=== PATIENT | male | born 1975 | race Caucasian/White ===

== ENCOUNTER 2016-12-09 17:22 | Observation (INO) | payer BC, MEDICAID ==
[~2016-12-09 17:22] MED LIST: THIAMINE 100 MG TAB PO SCH
[2016-12-09] MEDS ORDERED: ONDANSETRON 4 MG/2 ML VIAL IVP STA ×2 (17:52→18:18)
[2016-12-09] MEDS ORDERED: MORPHINE SULFATE 4 MG/ML SYRINGE IV STA (18:18)
--- NOTE | 2016-12-09 18:37 | XR ---
EXAMINATION TYPE: XR chest 2V DATE OF EXAM: 12/09/2016 COMPARISON: 01/09/2016 HISTORY: Chest pain TECHNIQUE: Frontal and lateral views of the chest are obtained. FINDINGS: Heart and mediastinum are normal. Lungs are clear. Diaphragm is normal. There are chest le ads. Bony thorax is intact. IMPRESSION: Normal chest. No change.
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
[2016-12-09 18:51] LABS: Aty Lym Flag Slight; CH 33.4; CHCM 34.9; HCT 42.7 % (39.0-53.0); HDW 2.48; HGB 16.3 gm/dL (13.0-17.5); MCH 36.7 pg (25.0-35.0); MCV 96.3 fL (80.0-100.0); Mean Platelet Volume 6.3; RBC 4.43 m/uL (4.30-5.90); RDW 13.2 % (11.5-15.5); WBC 8.1 k/uL (3.8-10.6); WBC (Perox) 7.65
[2016-12-09 19:00] LABS: MCHC 38.1 g/dL (31.0-37.0)
[2016-12-09 19:09] LABS: Creatine Kinase 106 U/L (55-170)
[2016-12-09 19:20] LABS: Chloride 104 mmol/L (98-107); Potassium 3.9 mmol/L (3.5-5.1); Sodium 136 mmol/L (137-145)
[2016-12-09 19:21] LABS: Creatine Kinase MB 1.8 ng/mL (0.0-2.4); Troponin I <0.012 ng/mL (0.000-0.034)
[2016-12-09 19:22] LABS: Add Differential Manual Differential
[2016-12-09 19:26] LABS: Manual Review Performed; Nucleated Red Blood Cells 0 /100 WBC (0-0); Total Cells Counted 100
[2016-12-09 19:28] LABS: ALT 86 U/L (21-72); AST 157 U/L (17-59); Alkaline Phosphatase 103 U/L (38-126); Amylase 71 U/L (30-110); Anion Gap 13 mmol/L; Blood Urea Nitrogen 22 mg/dL (9-20); Calcium 8.8 mg/dL (8.4-10.2); Carbon Dioxide 19 mmol/L (22-30); Glucose 140 mg/dL (74-99); Magnesium 2.1 mg/dL (1.6-2.3); Non-African American GFR(MDRD) >60 (>60 ml/min/1.73 sqM); Total Bilirubin 0.6 mg/dL (0.2-1.3); Total Protein 6.9 g/dL (6.3-8.2)
[2016-12-09] MEDS ORDERED: SODIUM CHLORIDE 0.9% 1,000 ML IV ONE (19:54)
[2016-12-09 21:17] LABS: Partial Thromboplastin Time 25.8 sec (22.0-30.0)
[2016-12-09 21:31] LABS: Prothrombin Time 12.4 sec (9.0-12.0)
[2016-12-09] MEDS ORDERED: NITROGLYCERIN SL TABS 0.4 MG TAB SUBLINGUAL PRN (21:42)
[2016-12-09] MEDS ORDERED: THIAMINE 100 MG/ML 2 ML VIAL IM STA (21:44)
[2016-12-09] MEDS ORDERED: LORazepam 2 MG/ML SYRINGE IV PRN ×3 (21:44)
[2016-12-09] MEDS ORDERED: traMADol 50 MG TAB PO PRN (22:03)
[2016-12-09] MEDS ORDERED: ALBUTEROL NEBULIZED 2.5 MG/3 ML INHALATION PRN (22:03)
[2016-12-09 22:57] VITALS: BMI 27.4
[2016-12-09] MEDS ORDERED: TRIMETHOBENZAMIDE 100 MG/ML 2 ML VIAL IM PRN (23:13)
[2016-12-09] MEDS ORDERED: MORPHINE SULFATE 2 MG/ML SYRINGE IVP PRN (23:14)
[2016-12-09] MEDS: MORPHINE SULFATE 2 MG/ML SYRINGE IVP PRN (23:36)
[2016-12-10 00:39] LABS: Creatine Kinase 86 U/L (55-170)
[2016-12-10 00:52] LABS: Creatine Kinase MB 1.5 ng/mL (0.0-2.4); Troponin I <0.012 ng/mL (0.000-0.034)
[2016-12-10] MEDS: MORPHINE SULFATE 2 MG/ML SYRINGE IVP PRN ×5 (04:10→23:57)
[2016-12-10] MEDS: PANTOPRAZOLE 40 MG TABLET PO SCH (05:29)
[2016-12-10 07:05] LABS: Creatine Kinase 472 U/L (55-170)
[2016-12-10 07:14] LABS: Creatine Kinase MB 2.3 ng/mL (0.0-2.4); Troponin I <0.012 ng/mL (0.000-0.034)
--- NOTE | 2016-12-10 07:32 | HP ---
DATE OF ADMISSION: 12/09/2016 CHIEF COMPLAINT: A 41-year-old white male with substernal chest pain, constant severe aching in nature. Cannot remember what he was doing when it started. He was drinking heavily. His alcohol was over 200 when he came in. He had some nausea and vomiting. He states he has had this pain similar to when he had his five stents put in before. EKG in the ER was normal. Cardiology was consulted. He is having no diaphoresis, dyspnea, lightheadedness, palpitations, syncope. He has had pancreatitis before, he does not remember if this is similar to any pancreatitis he has ever had. It is aching, constant, worsens with ( ). Home Medications: 1. Albuterol inhaler. 2. Advair inhaler. 3. Protonix. ALLERGIES: No known drug allergies. REVIEW OF SYSTEMS: Fourteen-point review of systems negative except for as mentioned in HPI. EKG shows sinus rhythm. No ischemia. PAST MEDICAL HISTORY: Asthma, detached retina, heart catheterization with stents x5 over a year ago. Uses marijuana. No smoker, but he does have alcohol abuse. FAMILY HISTORY: Mother COPD, hypertension. PHYSICAL EXAM: He is alert and oriented x3. He feels weak and fatigued. He looks disheveled and respiratory shows clear. No rales, rhonchi or stridor. CARDIOVASCULAR: S1, S2 without any murmurs, rubs, gallops. GI: Distended due to obesity. Normal bowel sounds. No mass or organomegaly. HEMATOLOGIC: Negative Homans. VASCULAR: Normal dorsalis pedis, posterior tibial and radial pulse. NEUROLOGIC: Alert and oriented x3. VASCULAR: Normal dorsalis pedis, posterior tibial and radial pulse. Temperature 98.6, blood pressure is 115 to 126/50's to 60s. O2 96 to 98%, pulse is 75 to 92. ASSESSMENT: 1. Acute alcohol intoxication. 2. Atypical chest pain, rule out myocardial infarction. 3. Severe, dyslipidemia untreatable with home medications and IV medicines. 4. Mild pancreatitis with some emesis. Cardiology has been consulted. Cardiac enzymes will be redrawn. Elevated liver enzymes. Ultrasound of the liver will be done. [facility] protocol.
--- NOTE | 2016-12-10 07:36 | US ---
EXAMINATION TYPE: US abdomen complete DATE OF EXAM: 12/10/2016 COMPARISON: NONE CLINICAL HISTORY: liver enzyme elevation. EXAM MEASUREMENTS: Liver Length: 16.9 cm Gallbladder Wall: 0.2 cm CBD: 0.3 cm Spleen: 10.0 cm Right Kidney: 11.0 x 5.0 x 4.8 cm Left Kidney: 10.9 x 5.6 x 5.2 cm Pancreas: mostly obscured by bowel gas Liver: Increased attenuation, decreased visualization of vessels suggestive of fatty infiltrate, upp er limit in size Gallbladder: wnl Evidence for sonographic Davis's sign: no CBD: wnl Spleen: wnl Right Kidney: wnl Left Kidney: wnl Upper IVC: wnl Abd Aorta: somewhat limited visualization due to bowel gas, distal and bifurcation not seen, prox me asures 3.1cm The pancreas is poorly visualized. The liver is upper limits of normal in size and echogenic and may be fatty infiltrated. The gallbladder is unremarkable without evidence of cholelithiasis. Gallbladder wall measures 2 mm. T he distal common hepatic duct measures 3 mm. There is no sonographic Davis's sign. The spleen is normal in size. Both kidneys are normal. Visualized portions of aorta and IVC are normal. IMPRESSION: Probable fatty infiltration of the liver.
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
[2016-12-10] MEDS ORDERED: ASPIRIN 325 MG TAB PO SCH (09:00)
[2016-12-10] MEDS ORDERED: THIAMINE 100 MG TAB PO SCH (09:00)
[2016-12-10] MEDS ORDERED: NON-FORMULARY DRUG (Omega-3 Fatty Acids [Omega-3] 1,000 MG) PO SCH (09:00)
[2016-12-10] MEDS: TICAGRELOR 90 MG TAB PO SCH ×2 (09:08→20:13)
[2016-12-10] MEDS: FENOFIBRATE 160 MG TAB PO SCH (09:08)
[2016-12-10] MEDS: SYMBICORT 80-4.5 MCG INHALER INHALATION SCH ×2 (09:24→19:00)
[2016-12-10] MEDS: LISINOPRIL 5 MG TAB PO SCH (11:34)
[2016-12-10] MEDS: ASPIRIN 81 MG CHEW PO SCH (11:34)
[2016-12-10] MEDS: METOPROLOL TARTRATE 25 MG TAB PO SCH ×2 (11:34→20:13)
[2016-12-10] MEDS: FOLIC ACID-VIT B COMPLEX-VIT C 1 CAP PO SCH (11:34)
[2016-12-10] MEDS: THIAMINE 100 MG TAB PO SCH ×3 (11:35→16:15)
[2016-12-10] MEDS ORDERED: ATORVASTATIN 40 MG TAB PO SCH (21:00)
[2016-12-11] MEDS: MORPHINE SULFATE 2 MG/ML SYRINGE IVP PRN (03:59)
[2016-12-11 04:27] VITALS: TEMP 97
[2016-12-11 08:15] VITALS: BP 127/74; PULSE 85; RESP 16
[2016-12-11] MEDS: SYMBICORT 80-4.5 MCG INHALER INHALATION SCH (08:39)
[2016-12-11] MEDS: FENOFIBRATE 160 MG TAB PO SCH (08:40)
[2016-12-11] MEDS: TICAGRELOR 90 MG TAB PO SCH (08:40)
[2016-12-11] MEDS: LISINOPRIL 5 MG TAB PO SCH (08:40)
[2016-12-11] MEDS: METOPROLOL TARTRATE 25 MG TAB PO SCH (08:40)
[2016-12-11] MEDS: PANTOPRAZOLE 40 MG TABLET PO SCH (08:40)
[2016-12-11] MEDS: ASPIRIN 81 MG CHEW PO SCH (08:40)
[2016-12-11] MEDS: FOLIC ACID-VIT B COMPLEX-VIT C 1 CAP PO SCH (08:41)
[2016-12-11] MEDS: THIAMINE 100 MG TAB PO SCH (08:41)
[2016-12-11] MEDS ORDERED: MORPHINE SULFATE 2 MG/ML SYRINGE ONE (09:00)
[2016-12-11] MEDS ORDERED: FENOFIBRATE 160 MG TAB ONE (09:00)
[2016-12-11] MEDS ORDERED: TICAGRELOR 90 MG TAB ONE (09:00)
[2016-12-11] MEDS ORDERED: ASPIRIN 81 MG CHEW ONE (09:00)
[2016-12-11] MEDS ORDERED: METOPROLOL TARTRATE 25 MG TAB ONE (09:00)
[2016-12-11] MEDS ORDERED: PANTOPRAZOLE 40 MG TABLET PO ONE (09:00)
[2016-12-11] MEDS ORDERED: LISINOPRIL 5 MG TAB ONE (09:00)
[2016-12-11] MEDS ORDERED: THIAMINE 100 MG TAB ONE (09:00)
[2016-12-11] MEDS ORDERED: FOLIC ACID-VIT B COMPLEX-VIT C 1 CAP ONE (09:00)
--- NOTE | 2016-12-11 10:39 | PN ---
SUBJECTIVE: Patient has no more emesis since last night, possibly due to alcoholism versus gastritis. His abdominal ultrasound is specific for a fatty liver. Cardiology saw the patient this morning. Cardiology says atypical for acute coronary syndrome. Troponins are negative x3. EKG shows sinus rhythm with inferior Q waves, no acute changes. Hypertension, dyslipidemia, alcohol abuse, history of pancreatitis. Sodium 136, potassium 4.9. PLAN: Echo and Dopplers pending. Going to get [facility]. Aspirin 81 mg and continue Brilinta, Lipitor. ( ) as an outpatient. Beta yazmin was started by cardiology and DAYAMI inhibitor. ( ) protocol. He is up ambulating. Discharge home in the morning, 12/10/2016.
--- NOTE | 2016-12-11 11:53 | P.PN ---
Subjective Principal diagnosis: Chest pain and dizziness This is a 41-year-old gentleman with history of hypertension, hyperlipidemia, asthma, EtOH abuse, coronary artery disease with prior stent placements. Patient states he's had a total of 5 stents in the past also which were done at [facility]. Patient presents to the hospital with symptoms of left -sided chest pain which she describes as sharp stabbing pains that come and go, lasting approximately 1-5 seconds in duration. He denies any associated diaphoresis, shortness of breath, palpitations, he does state that he's had intermittent dizziness. Patient's alcohol level on admission was greater than 200. He states that he drinks at least a pint of whiskey a week. Patient does have history of pancreatitis. EKG on arrival here shows normal sinus rhythm with no acute changes on the inferior Q-wave noted. EKG performed this morning shows normal sinus rhythm with no acute changes. 12/11/2016 Patient seen and examined this morning, denies any chest pain or difficulty in breathing. He's been up ambulating without any difficulty. Monitor shows normal sinus rhythm. He may be able to be discharged home from cardiology's perspective, we'll make him a follow-up appointment to see Dr. VC Ruiz in the office post discharge. Objective - Vital Signs Vital signs: Vital Signs Temp 97.0 F L 12/11/16 04:00 Pulse 85 12/11/16 08:00 Resp 16 12/11/16 08:00 BP 127/74 12/11/16 08:00 Pulse Ox 95 12/11/16 08:00 Intake & Output 12/10/16 12/11/16 12/11/16 18:59 06:59 18:59 Intake Total 180 Balance 180 Weight 80.8 kg Intake: Oral 180 Other: # Voids 1 1 - Exam PHYSICAL EXAMINATION: HEENT: Head is atraumatic, normocephalic. Pupils equal, round. Neck is supple. There is no elevated jugular venous pressure. HEART EXAMINATION: Heart S1, S2 normal. No murmur or gallop heard. CHEST EXAMINATION: Lungs are clear to auscultation and precussion. No chest wall tenderness is noted on palpation or with deep breathing. ABDOMEN: Soft, nontender. Bowel sounds are heard. No organomegaly noted. EXTREMITIES: 2+ peripheral pulses with no evidence of peripheral edema and no calf tenderness noted. NEUROLOGIC patient is awake, alert and oriented -3. . - Labs CBC & Chem 7: 12/09/16 18:06 12/09/16 18:06 Assessment and Plan Plan: Assessment and plan #1 chest pain, atypical for acute coronary syndrome. Troponins negative 3. EKG shows normal sinus rhythm with inferior Q-wave, no acute changes noted. #2 coronary artery disease with prior stent placements #3 hypertension #4 hyperlipidemia #5 EtOH abuse and history of pancreatitis #6 elevated liver enzymes, likely secondary to EtOH. Plan From cardiology's perspective, patient may be able to be discharged home today. We will make him a follow-up appointment to see Dr. VC Ruiz in the office post discharge. DNP note has been reviewed, I agree with a documented findings and plan of care. Patient was seen and examined.
--- NOTE | 2016-12-12 11:45 | ECHOF ---
Referral Reason:chest pain MEASUREMENTS -------- HEIGHT: 172.7 cm WEIGHT: 80.7 kg BP: 130/30 IVSd: 1.3 cm (0.6 - 1.1) LVIDd: 4.9 cm (3.9 - 5.3) LVPWd: 0.9 cm (0.6 - 1.1) IVSs: 1.2 cm LVIDs: 4.4 cm LVPWs: 1.3 cm LA Diam: 4.1 cm (2.7 - 3.8) LAESV Index (A-L): 26.10 ml/m Ao Diam: 3.2 cm (2.0 - 3.7) AV Cusp: 2.0 cm (1.5 - 2.6) LA Diam: 4.0 cm (2.7 - 3.8) MV EXCURSION: 19.089 mm (> 18.000) MV EF SLOPE: 69 mm/s (70 - 150) EPSS: 1.0 cm MV E Lb: 0.52 m/s MV DecT: 334 ms MV A Lb: 0.86 m/s MV E/A Ratio: 0.61 RAP: 5.00 mmHg RVSP: 20.98 mmHg FINDINGS -------- Sinus rhythm. This was a technically good study. There is mild concentric left ventricular hypertrophy. Overall left ventricular systolic function is mildly impaired with, an EF between 45 - 50 %. Inferior basal Hypokinesis Basal septal hypokinesis The right ventricle is normal in size. Normal LA size by volume 22+/-6 ml/m2. The right atrial size is normal. There is mild aortic valve sclerosis. There is no evidence of aortic regurgitation. Mild mitral annular calcification present. Mild mitral regurgitation is present. Mild tricuspid regurgitation present. There is no evidence of pulmonary hypertension. The right ventricular systolic pressure, as measured by Doppler, is 20.98mmHg. There is no pulmonic regurgitation present. The aortic root size is normal. There is no pericardial effusion. CONCLUSIONS -------- 1. There is mild concentric left ventricular hypertrophy. 2. The right ventricular systolic pressure, as measured by Doppler, is 20.98mmHg. 3. There is no pulmonic regurgitation present. 4. The aortic root size is normal. 5. There is no pericardial effusion. 6. Overall left ventricular systolic function is mildly impaired with, an EF between 45 - 50 %. 7. Inferior basal Hypokinesis 8. Basal septal hypokinesis 9. There is mild aortic valve sclerosis. 10. Mild mitral annular calcification present. 11. Mild mitral regurgitation is present. 12. Mild tricuspid regurgitation present. 13. There is no evidence of pulmonary hypertension. READING INSTRUCTOR: Jazmyne Helton RDCS
== END 2016-12-11 11:52 | disposition home or self-care (01) ==
LOC: EC 17:22 → 6SEL 21:43
PROVIDERS: ADMIT Family Medicine; ATTEND Family Medicine
DX: F10.129 Alcohol abuse with intoxication, unspecified (principal); R07.9 Chest pain, unspecified; E78.5 Hyperlipidemia, unspecified; K85.90 Acute pancreatitis without necrosis or infection, unspecified; R74.8 Abnormal levels of other serum enzymes; I10 Essential (primary) hypertension; I25.10 Atherosclerotic heart disease of native coronary artery without angina pectoris; J45.909 Unspecified asthma, uncomplicated; Z79.899 Other long term (current) drug therapy; Z82.49 Family history of ischemic heart disease and other diseases of the circulatory system; Z82.5 Family history of asthma and other chronic lower respiratory diseases; Z95.5 Presence of coronary angioplasty implant and graft
CPT/HCPCS: 96376 ×4; 96374 ×2; 96375 ×2; 99285 ×2; 36415; 94640 ×3; 93005; 93306; 85379; 80053; 82150; 82550 ×2; 82553 ×2; 83735; 84484 ×2; 85025; 85610; 85730; 80320; 71020; 76700; G0378 ×3; J2270 ×4; J3411; J3250; J2405

== ENCOUNTER 2017-01-24 13:58 | Inpatient (IN) | payer MEDICAID ==
[2017-01-24] MEDS ORDERED: MAGNESIUM HYDROXIDE 2,400 MG/10 ML CUP PO PRN (19:17)
[2017-01-24] MEDS ORDERED: ACETAMINOPHEN TAB 325 MG TAB PO PRN (19:17)
[2017-01-24] MEDS ORDERED: MAG HYDROX/AL HYDROX/SIMETH 30 ML CUP PO PRN (19:17)
[2017-01-24] MEDS ORDERED: ZIPRASIDONE 20 MG VIAL IM PRN (19:17)
[2017-01-24] MEDS: ALBUTEROL INHALER 60 PUFF/8 GM INHALER INHALATION PRN (21:19)
[2017-01-24] MEDS: TICAGRELOR 90 MG TAB PO SCH (21:24)
[2017-01-24] MEDS: LORazepam 1 MG TAB PO PRN (21:24)
[2017-01-24] MEDS: ATORVASTATIN 80 MG TAB PO SCH (21:24)
[2017-01-24] MEDS: LISINOPRIL 20 MG TAB PO SCH (21:24)
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
[2017-01-25] MEDS: CARVEDILOL 12.5 MG TAB PO SCH ×2 (07:44→16:51)
[2017-01-25] MEDS: PANTOPRAZOLE 40 MG TABLET PO SCH (08:01)
[2017-01-25] MEDS: ALBUTEROL INHALER 60 PUFF/8 GM INHALER INHALATION PRN ×4 (09:13→20:55)
[2017-01-25] MEDS: SYMBICORT 80-4.5 MCG INHALER INHALATION SCH ×2 (09:14→20:54)
[2017-01-25] MEDS: FENOFIBRATE 160 MG TAB PO SCH (09:53)
[2017-01-25] MEDS: LISINOPRIL 20 MG TAB PO SCH ×2 (09:53→21:05)
[2017-01-25] MEDS: ASPIRIN 81 MG CHEW PO SCH (09:53)
[2017-01-25] MEDS: TICAGRELOR 90 MG TAB PO SCH ×2 (09:53→21:05)
[2017-01-25] MEDS: ISOSORBIDE MONONITRATE ER 30 MG TAB.ER.24H PO SCH (09:53)
[2017-01-25] MEDS: POTASSIUM CHLORIDE ER 10 MEQ TAB.ER.PRT PO SCH (09:53)
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
[2017-01-25] MEDS: SERTRALINE 100 MG TAB PO SCH (11:04)
[2017-01-25] MEDS: THIAMINE 100 MG TAB PO SCH (12:10)
[2017-01-25] MEDS: FOLIC ACID-VIT B COMPLEX-VIT C 1 CAP PO SCH (12:10)
[2017-01-25] MEDS: ATORVASTATIN 80 MG TAB PO SCH (21:05)
[2017-01-25] MEDS: LORazepam 1 MG TAB PO PRN (21:27)
[2017-01-26] MEDS: SERTRALINE 100 MG TAB PO SCH (09:01)
[2017-01-26] MEDS: POTASSIUM CHLORIDE ER 10 MEQ TAB.ER.PRT PO SCH (09:01)
[2017-01-26] MEDS: TICAGRELOR 90 MG TAB PO SCH ×2 (09:01→20:20)
[2017-01-26] MEDS: PANTOPRAZOLE 40 MG TABLET PO SCH (09:01)
[2017-01-26] MEDS: CARVEDILOL 12.5 MG TAB PO SCH ×2 (09:02→17:05)
[2017-01-26] MEDS: ISOSORBIDE MONONITRATE ER 30 MG TAB.ER.24H PO SCH (09:02)
[2017-01-26] MEDS: LISINOPRIL 20 MG TAB PO SCH ×2 (09:02→20:20)
[2017-01-26] MEDS: ASPIRIN 81 MG CHEW PO SCH (09:02)
[2017-01-26] MEDS: FENOFIBRATE 160 MG TAB PO SCH (09:02)
[2017-01-26] MEDS: SYMBICORT 80-4.5 MCG INHALER INHALATION SCH ×2 (09:22→21:16)
[2017-01-26] MEDS: ALBUTEROL INHALER 60 PUFF/8 GM INHALER INHALATION PRN ×2 (09:24→21:18)
[2017-01-26] MEDS: FOLIC ACID-VIT B COMPLEX-VIT C 1 CAP PO SCH (11:56)
[2017-01-26] MEDS: THIAMINE 100 MG TAB PO SCH (11:56)
--- NOTE | 2017-01-26 12:28 | P.PN ---
Progress Note - Text Interval History: Patient is a 41-year-old male who is being seen in coverage for Dr. Suh. Patient reports that he had been transferred here from [facility] where he had been detoxing from alcohol and made suicidal statements. Patient states he is no longer having any suicidal thoughts and states that he is no longer feeling depressed. He reports that he has been sleeping and eating well. Patient states that he is interested in inpatient rehab and has contacted [facility] for this. Patient reported no complaints of side effects from his Zoloft and had no other concerns at this time. Mental Status: Appearance/Attitude: Patient was appropriately dressed and he made good eye contact and was cooperative. Behavior: Patient did not display any psychomotor agitation or retardation. Speech/Language: Patient's speech was spontaneous and of normal volume and rhythm and he was coherent. Thought Process: Patient was goal-directed and there is no evidence of any circumstantial or tangential thought and no loose associations or flight of ideas. Thought Content: Patient denied any auditory or visual hallucinations and no paranoid ideation or delusional ideation was elicited. Patient reported that he was no longer feeling depressed or suicidal and had been sleeping and eating well. He reported that he would like to go to rehab so that he does not return to using alcohol and cocaine. Suicidal/Homicidal Ideation: Patient denied any current suicidal or homicidal ideation. Sensorium/Cognition: Patient was alert and oriented to person, place, and time and his memory was grossly intact. Mood/Affect: Patient's mood was euthymic and his affect was appropriate. Insight/Judgement: Patient's insight and judgment are fair. Assessment: Patient reports he is no longer having any depressive symptoms and no suicidal ideation and states that he is not having any symptoms of withdrawal. Patient has been attending groups and activities and has been participating. He is currently requesting an intake at [facility] and states he has made contact and his packet was faxed over this morning. Patient continues on his Zoloft and reports no side effects. Plan: Patient will continue on Zoloft 100 mg a day to target his depression, he was encouraged to continue to participate in groups and activities. He has contacted [facility] for an intake for inpatient rehab. Patient will continue in the hospital to further stabilize his mood.
[2017-01-26] MEDS: ATORVASTATIN 80 MG TAB PO SCH (20:20)
[2017-01-26] MEDS: LORazepam 1 MG TAB PO PRN (21:31)
[2017-01-27] MEDS: CARVEDILOL 12.5 MG TAB PO SCH (07:59)
[2017-01-27] MEDS: PANTOPRAZOLE 40 MG TABLET PO SCH (07:59)
[2017-01-27] MEDS: ISOSORBIDE MONONITRATE ER 30 MG TAB.ER.24H PO SCH (08:25)
[2017-01-27] MEDS: ASPIRIN 81 MG CHEW PO SCH (08:25)
[2017-01-27] MEDS: TICAGRELOR 90 MG TAB PO SCH ×2 (08:25→20:26)
[2017-01-27] MEDS: LISINOPRIL 20 MG TAB PO SCH (08:25)
[2017-01-27] MEDS: FENOFIBRATE 160 MG TAB PO SCH (08:26)
[2017-01-27] MEDS: POTASSIUM CHLORIDE ER 10 MEQ TAB.ER.PRT PO SCH (08:26)
[2017-01-27] MEDS: SERTRALINE 100 MG TAB PO SCH (08:26)
[2017-01-27] MEDS: SYMBICORT 80-4.5 MCG INHALER INHALATION SCH ×2 (09:27→21:49)
[2017-01-27] MEDS: ALBUTEROL INHALER 60 PUFF/8 GM INHALER INHALATION PRN ×3 (09:27→21:49)
[2017-01-27] MEDS ORDERED: LISINOPRIL 10 MG TAB PO SCH (10:50)
[2017-01-27] MEDS ORDERED: CARVEDILOL 6.25 MG TAB PO SCH (10:50)
--- NOTE | 2017-01-27 10:53 | P.PN ---
Progress Note - Text Interval history: The patient is found in the hallway he follows this to an interview room. He reports that there has been a progressive improvement of symptoms while here. He does have a family meeting scheduled for this afternoon. Nursing reports that the patient didn't have an episode of hypotension and he felt faint. There was no reported injury. Some of his blood pressure medication has been held. He's been encouraged to hydrate. The patient states his mood is improving. He feels safe in the hospital area and efforts continue to be made to place him in inpatient chemical dependency treatment. It appears [facility] is not an option due to lack of available beds and [facility] is being pursued. Nursing has contacted the consulting internal medicine physician for further recommendations. Mental status exam: The patient reports improvement of his mood. He feels safe in the hospital. He endorses no thoughts of harming others he endorses no symptoms of hallucinations. He seated calmly he is demonstrating adequate hygiene grooming. Speech is fluent spontaneous nonpressured. There is no evidence of psychosis he does not appear hypomanic or manic. He reports no symptoms of psychosis. Insight and judgment improving. He demonstrates no verbal or physical aggressiveness. There are no visible signs of alcohol withdrawal symptoms. Plan: The patient will continue on Zoloft. We will monitor his blood pressure we will await recommendations from internal medicine regarding his antihypertensives. Social work will continue assisting the patient with facilitating placement at [facility]. We will consider discharging him Monday if he is clinically stable and has demonstrated sufficient clinical improvement. Most recent vital signs reviewed.
[2017-01-27] MEDS: FOLIC ACID-VIT B COMPLEX-VIT C 1 CAP PO SCH (12:30)
[2017-01-27] MEDS: THIAMINE 100 MG TAB PO SCH (12:30)
[2017-01-27] MEDS ORDERED: SODIUM CHLORIDE 0.9% 1,000 ML IV ONE (13:44)
--- NOTE | 2017-01-27 16:59 | P.PN ---
Subjective Principal diagnosis: Patient seen and examined today per RN request due to patient having hypotension symptomatic with near syncope 41 years old male with history significant for coronary artery disease with history of coronary stenting and polysubstance abuse. Patient was recently treated for hypotension and chest pain with medical management without the need for coronary intervention after which she was discharged to our inpatient psych unit for further management of alcohol and drug abuse. Today patient reports waking up feeling a little tired however he was powering through, and this morning when he was coalled to get vital signs done he felt that he was struggling to walk the hallways to the nursing station as he felt slightly dizzy and fatigued. And while the nurse was taking his vital signs he started to become sweaty and dizzy he recognizes the symptoms and did not want to faint and pass out so he laid down on the ground without losing consciousness or sustaining any injury. He denies any associated nausea, vomiting, chest pain, or shortness of breath. Patient reports that the symptoms happened before for which his medications been adjusted. He is not sure what he supposed to take at home but he knows for sure that he is taking Lopressor, Birlinta, aspirin, And Lipitor. We contacted pharmacy to verify his medications and it seems like last time he refilled Imdur or losartan was last year. Currently patient denies again any chest pain or trouble breathing but does admit to feeling slightly dizzy without vertigo or nausea. Objective - Vital Signs Vital signs: Vital Signs Temp 98.0 F 01/27/17 06:34 Pulse 101 H 01/27/17 11:33 Resp 16 01/27/17 11:33 BP 81/53 01/27/17 11:33 Pulse Ox 98 01/27/17 10:28 Orthostatic vital signs positive for orthostatic hypotension Constitutional: Not in acute distress, pleasant, conversant Lungs: Clear to auscultation bilaterally, no use of accessory muscles Cardiovascular: Regular rate and rhythm, no murmurs, no gallops, no rubs, no peripheral edema Extremities: No digital cyanosis or clubbing, peripheral pulses palpable and equal over bilateral radial arteries and dorsalis pedis arteries, no calf muscle tenderness Psych: Alert, oriented to place, person and time EKG ordered and reviewed Assessment and Plan (1) Orthostatic hypotension Status: Acute (2) Orthostatic dizziness Status: Acute (3) Hypotension due to medication Status: Acute Plan: Patient's records reviewed Most recent echo done 12/10/2016 shows left ventricular ejection fraction of 45- 50% with concentric ventricular hypertrophy and inferior basal wall hypokinesis Most recent cardiology evaluation during that time suggested atypical chest pain and recommended to continue current cardiac medications and to follow-up outpatient with cardiology Currently patient denies any chest pain or trouble breathing. After verifying medication list with patient's pharmacy it seems that the patient has been off losartan and Imdur since 2016 and he was only receiving Lopressor, pharmacy also verify this patient receives aspirin, Lipitor, and Birlinta. It seems like this bout of hypotension secondary to being drug-induced, plan to discontinue Imdur and lisinopril. Patient is currently on Coreg this will be switched to Lopressor(which is his home medication) Hold parameters on Lopressor Continue with losartan with hold parameters Discontinue Imdur Continue with Birlinta,, aspirin, Lipitor Normal saline 0.9% 1 L bolus due to positive orthostatic vital signs Continue close monitoring of vital signs Check basic metabolic panel in the morning EKG ordered and reviewed by myself, shows normal sinus rhythm, Q wave in inferior leads(II,III,aVF) unchanged from prior EKG.
[2017-01-27] MEDS: ATORVASTATIN 80 MG TAB PO SCH (20:26)
[2017-01-27] MEDS: METOPROLOL TARTRATE 25 MG TAB PO SCH (20:26)
[2017-01-27] MEDS: LORazepam 1 MG TAB PO PRN (22:38)
[2017-01-28] MEDS: ASPIRIN 81 MG CHEW PO SCH (08:40)
[2017-01-28] MEDS: METOPROLOL TARTRATE 25 MG TAB PO SCH ×2 (08:40→20:53)
[2017-01-28] MEDS: TICAGRELOR 90 MG TAB PO SCH ×2 (08:41→20:53)
[2017-01-28] MEDS: POTASSIUM CHLORIDE ER 10 MEQ TAB.ER.PRT PO SCH (08:41)
[2017-01-28] MEDS: FENOFIBRATE 160 MG TAB PO SCH (08:42)
[2017-01-28] MEDS: SERTRALINE 100 MG TAB PO SCH (08:44)
[2017-01-28] MEDS: PANTOPRAZOLE 40 MG TABLET PO SCH (08:44)
[2017-01-28] MEDS: LOSARTAN 25 MG TAB PO SCH (08:45)
[2017-01-28] MEDS: SYMBICORT 80-4.5 MCG INHALER INHALATION SCH ×2 (08:53→20:45)
[2017-01-28] MEDS: ALBUTEROL INHALER 60 PUFF/8 GM INHALER INHALATION PRN ×3 (08:54→20:45)
[2017-01-28 09:06] LABS: Anion Gap 8 mmol/L; Blood Urea Nitrogen 15 mg/dL (9-20); Calcium 9.5 mg/dL (8.4-10.2); Carbon Dioxide 28 mmol/L (22-30); Chloride 102 mmol/L (98-107); Glucose 141 mg/dL (74-99); Non-African American GFR(MDRD) >60 (>60 ml/min/1.73 sqM); Potassium 4.2 mmol/L (3.5-5.1); Sodium 138 mmol/L (137-145)
--- NOTE | 2017-01-28 11:35 | P.PN ---
Progress Note - Text Interval history: The patient is found in the hallway he follows me to an interview room. He reports his mood is okay. He expressed some concern regarding his family meeting discussing the details of his substance use with his . He continues to be motivated for inpatient chemical dependency treatment and social work continues to look for placement. He was able to sleep last evening appetite is stable. He feels he is safe he is endorsing no acute suicidal ideation intent or plan at this time. He has been attending groups. Mental status exam: The patient is alert he is seated calmly in the chair he has a Hep-Lock on the posterior surface of his right hand. He is reporting no acute suicidal or homicidal ideation. There is no report or evidence of psychosis. He does not present hypomanic or manic. He has a mildly disheveled appearance hygiene is adequate he is dressed in his own clothing. Speech is fluent spontaneous nonpressured. Thought process is linear he demonstrates no tangential thinking loose associations or flight of ideas. He demonstrates no verbal or physical aggressiveness. He is pleasant and cooperative and easily directed in conversation. He remains oriented to person place and date. Plan: The patient will continue on the Zoloft. Input from internal medicine appreciated. Some of the patient's antihypertensive medication has been held he did receive a bolus of IV fluids. He reports no dizziness. Vital signs reviewed. I anticipate he will be appropriate for discharge Monday.
[2017-01-28] MEDS: FOLIC ACID-VIT B COMPLEX-VIT C 1 CAP PO SCH (12:21)
[2017-01-28] MEDS: THIAMINE 100 MG TAB PO SCH (12:21)
[2017-01-28] MEDS: LORazepam 1 MG TAB PO PRN (16:33)
--- NOTE | 2017-01-28 17:05 | P.PN ---
Subjective Principal diagnosis: Patient seen and examined today in follow up for hypotension 41 years old male with history significant for coronary artery disease with history of coronary stenting and polysubstance abuse. Patient was recently treated for hypotension and chest pain with medical management without the need for coronary intervention after which she was discharged to our inpatient psych unit for further management of alcohol and drug abuse. Patient seen and examined today, reports no more symptoms of postural dizziness denies any chest pain or trouble breathing denies any headaches or changes in vision. He feels better compared to yesterday he is requesting for removal of his IV Objective - Vital Signs Vital signs: Vital Signs Temp 98.2 F 01/28/17 07:03 Pulse 73 01/28/17 16:34 Resp 16 01/28/17 08:46 BP 112/75 01/28/17 16:34 Pulse Ox 98 01/27/17 10:28 Constitutional: vital signs stable, Not in acute distress, pleasant, conversant Cardiovascular: Regular rate and rhythm, no murmurs, no gallops, no rubs, no peripheral edema Psych: Alert, oriented to place, person and time labs reviewed - Labs CBC & Chem 7: 01/28/17 08:31 Labs: Abnormal Lab Results - Last 24 Hours (Table) 01/28/17 Range/Units 08:31 Glucose 141 H (74-99) mg/dL Assessment and Plan (1) Orthostatic dizziness Status: Resolved (2) Hypotension due to medication Status: Resolved Plan: Hold parameters on Lopressor losartan with hold parameters Continue with Birlinta, aspirin, Lipitor Continue close monitoring of vital signs labs reviewed and seems to be stable
[2017-01-28] MEDS: ATORVASTATIN 80 MG TAB PO SCH (20:53)
[2017-01-29] MEDS: ALBUTEROL INHALER 60 PUFF/8 GM INHALER INHALATION PRN ×2 (09:33→20:34)
[2017-01-29] MEDS: SYMBICORT 80-4.5 MCG INHALER INHALATION SCH ×2 (09:33→20:35)
--- NOTE | 2017-01-29 10:05 | P.PN ---
Progress Note - Text Interval history: The patient is found in the hallway he follows me to an interview room.. He feels his mood is stabilizing. Sleep has stabilized appetite is good. He is participating in groups. He is not eligible for 2 of the inpatient rehabs that have been contacted he is on a wait [facility] for [facility]. He is considering outpatient chemical dependency treatment if inpatient chemical dependency treatment is not available. He continues to comply with Zoloft he has no questions or concerns regarding that medication. Mental status exam: The patient is alert he is pleasant and cooperative. Speech is fluent spontaneous nonpressured. He endorses his mood is "better". Affect is congruent to reported mood. He denies having any suicidal or homicidal ideation intent or plan. There is no report or evidence of psychosis. He does not appear hypomanic or manic. Insight and judgment improving. He remains oriented to person place and date. There is no verbal or physical aggressiveness. Plan: The patient will continue on the Zoloft. We will discontinue the Ativan as it is no longer necessary. We will monitor him for safety. I expect to discharge him tomorrow if he remains clinically stable. We are hoping that he will be accepted for inpatient chemical dependency treatment soon.
[2017-01-29] MEDS: TICAGRELOR 90 MG TAB PO SCH ×2 (10:26→20:33)
[2017-01-29] MEDS: POTASSIUM CHLORIDE ER 10 MEQ TAB.ER.PRT PO SCH (10:26)
[2017-01-29] MEDS: PANTOPRAZOLE 40 MG TABLET PO SCH (10:26)
[2017-01-29] MEDS: FENOFIBRATE 160 MG TAB PO SCH (10:26)
[2017-01-29] MEDS: ASPIRIN 81 MG CHEW PO SCH (10:26)
[2017-01-29] MEDS: SERTRALINE 100 MG TAB PO SCH (10:26)
[2017-01-29] MEDS: LOSARTAN 25 MG TAB PO SCH (10:27)
[2017-01-29] MEDS: METOPROLOL TARTRATE 25 MG TAB PO SCH ×2 (10:27→20:32)
[2017-01-29] MEDS: THIAMINE 100 MG TAB PO SCH (12:40)
[2017-01-29] MEDS: FOLIC ACID-VIT B COMPLEX-VIT C 1 CAP PO SCH (12:40)
--- NOTE | 2017-01-29 17:07 | P.PN ---
Subjective Principal diagnosis: Patient seen and examined today in follow up for hypotension 41 years old male with history significant for coronary artery disease with history of coronary stenting and polysubstance abuse. Patient was recently treated for hypotension and chest pain with medical management without the need for coronary intervention after which she was discharged to our inpatient psych unit for further management of alcohol and drug abuse. Patient seen and examined today, reports no postural dizziness or lightheadedness, he denies any chest pain or trouble breathing. Vital signs showing systolic blood pressure borderline low normal Objective - Vital Signs Vital signs: Vital Signs Temp 98.2 F 01/28/17 07:03 Pulse 84 01/29/17 10:28 Resp 16 01/29/17 10:28 BP 110/75 01/29/17 10:28 Pulse Ox 98 01/27/17 10:28 Intake & Output 01/28/17 01/29/17 01/29/17 18:59 06:59 18:59 Weight 80.8 kg Constitutional: vital signs stable, Not in acute distress, pleasant, conversant Cardiovascular: Regular rate and rhythm, no peripheral edema Psych: Alert, oriented to place, person and time Systolic blood pressure continues to run borderline low normal - Labs CBC & Chem 7: 01/28/17 08:31 Assessment and Plan (1) Hypotension due to medication Narrative/Plan: Systolic blood pressure continues to run borderline low-normal Continue with Lopressor with hold parameters Patient not receiving any losartan due to hold parameters Imdur continues to be on hold should be restarted once systolic blood pressure is stable Status: Resolved (2) Orthostatic dizziness Status: Resolved Plan: History of CAD Continue with Birlinta, aspirin, Lipitor Continue close monitoring of vital signs Patient denies any chest pain DVT prophylaxis Patient is low risk and ambulatory
[2017-01-29] MEDS: ATORVASTATIN 80 MG TAB PO SCH (20:32)
[2017-01-30 06:45] VITALS: TEMP 98.1
[2017-01-30] MEDS: FENOFIBRATE 160 MG TAB PO SCH (08:43)
[2017-01-30] MEDS: ASPIRIN 81 MG CHEW PO SCH (08:43)
[2017-01-30] MEDS: PANTOPRAZOLE 40 MG TABLET PO SCH (08:43)
[2017-01-30] MEDS: SERTRALINE 100 MG TAB PO SCH (08:43)
[2017-01-30] MEDS: TICAGRELOR 90 MG TAB PO SCH (08:43)
[2017-01-30] MEDS: POTASSIUM CHLORIDE ER 10 MEQ TAB.ER.PRT PO SCH (08:44)
[2017-01-30] MEDS: LOSARTAN 25 MG TAB PO SCH (08:44)
[2017-01-30] MEDS: METOPROLOL TARTRATE 25 MG TAB PO SCH (08:44)
[2017-01-30] MEDS: SYMBICORT 80-4.5 MCG INHALER INHALATION SCH (09:13)
[2017-01-30] MEDS: ALBUTEROL INHALER 60 PUFF/8 GM INHALER INHALATION PRN ×2 (09:14→14:03)
--- NOTE | 2017-01-30 09:21 | P.DS ---
Providers Date of admission: 01/24/17 18:16 Expected date of discharge: 01/30/17 Attending physician: Jae Suh Consults: 01/24/17 19:17 Consult Physician Routine Consulting Provider: Jim Olvera Consult Reason/Comments: H & P and medical care Do you want consulting provider notified?: Yes Primary care physician: Stated None - Discharge Diagnosis(es) (1) Major depressive disorder Current Visit: Yes Status: Acute Priority: High (2) Alcohol use disorder Current Visit: Yes Status: Acute Priority: High (3) Cocaine use disorder, mild, abuse Current Visit: Yes Status: Acute Priority: High Hospital Course: Brief summary of admission note: This patient is a 41-year-old male who was admitted to the mental health unit as a transfer from [facility]. The patient was admitted to the mental health unit as he was reportedly experiencing suicidal ideation. Apparently he made statements at [facility] indicating he would harm himself. He states that those statements were made while he was going through symptoms of alcohol withdrawal. He was previously on Zoloft and was been treated for depression. He had taken 3 extra Coreg pills in order to go to sleep and was presumed that he was trying to harm himself. For full details please refer to my psychiatric evaluation note dated 01/25/2017. Summary of hospital course: The patient was admitted to the mental health unit he did sign in voluntarily. We reviewed his presenting symptoms and medication options. We decided to continue him on the Zoloft 100 mg as that was a fairly new medication and he was experiencing no side effects. We discussed that we would not want to use any benzodiazepines and less so as needed for prevention of withdrawal. During the course of the stay he did experience a presyncopal episode. Internal medicine addressed the issue of reducing his antihypertensive medication and he was given a fluid bolus. There were no other subsequent events. The patient reported a progressive improvement of symptoms while here he reported no acute suicidal ideation intent or plan. He did participate in a support meeting facilitated by social work involving his . 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 Mental status exam: The patient is a male appearing his stated age he is dressed in his own clothing hygiene is adequate. Eye contact is appropriate speech is fluent spontaneous nonpressured. He reports his mood is "not bad" he indicates he is doing better. Affect is appropriately expressive and congruent to reported mood he demonstrates a full range of affect including appropriate smiling. He reports no suicidal ideation intent or plan and no homicidal ideation intent or plan he reports no auditory or visual hallucinations or specific delusions. There is no overt evidence of psychosis. He does not appear hypomanic or manic. Thought process is linear. He demonstrates no tangential thinking loose associations or flight of ideas. Insight and judgment in general have improved. He is oriented to person place and date. He demonstrates no verbal or physical aggressiveness. Impressions 1. Major depressive disorder recurrent, alcohol use disorder, cocaine use disorder, rule out marijuana use disorder 2. Medical comorbidities including coronary artery disease, asthma, GERD, hyperlipidemia, history of pancreatitis, history of right leg injury, history of left retinal detachment Plan: The patient will be discharged mental health unit today. Our hope is that he will be able to go to [facility] for inpatient chemical dependency treatment. If there is a delay in that admission he will return home. He is encouraged to attend AA or NA meetings until he is placed. He will continue on Zoloft 100 mg daily. He will continue following his primary care physician regarding his other medical comorbidities. He is instructed not to use alcohol or any other substances as it will elevate his safety risk. There is no imminent safety risk and he is appropriate for discharge from the mental health unit. Plan - Discharge Summary New Discharge Prescriptions: Continue Albuterol Inhaler [Ventolin Hfa Inhaler] 1 - 2 puff INHALATION RT-Q6H PRN PRN Reason: Wheezing Fluticasone/Salmeterol [Advair 250-50 Diskus] 1 inhalation PO RT-BID Pantoprazole Sodium [Protonix] 40 mg PO DAILY Folic Acid-Vit B Complex-Vit C [Nephrocaps] 1 mg PO DAILY #30 capsule Fenofibrate [Lofibra] 160 mg PO DAILY #30 tablet Sheridan-3 Fatty Acids [Sheridan-3] 1,000 mg PO DAILY #30 capsule Thiamine [Vitamin B-1] 100 mg PO DAILY #30 tab Ticagrelor [Brilinta] 90 mg PO BID Atorvastatin Calcium [Lipitor] 80 mg PO HS Losartan Potassium [Cozaar] 25 mg PO DAILY Metoprolol Tartrate [Lopressor] 25 mg PO BID #60 tab Potassium Chloride ER [K-Dur 10] 10 meq PO DAILY Aspirin EC [Ecotrin Low Dose] 81 mg PO DAILY Sertraline [Zoloft] 100 mg PO DAILY #30 Discontinued ALPRAZolam [Xanax] 0.5 mg PO TID PRN PRN Reason: Anxiety HYDROcodone/APAP 5-325MG [[place] 5-325] 1 tab PO Q6H PRN PRN Reason: Pain Ibuprofen [Motrin] 800 mg PO Q8H PRN PRN Reason: Pain Isosorbide Mononitrate ER [Imdur] 30 mg PO DAILY Discharge Medication List Albuterol Inhaler [Ventolin Hfa Inhaler] 1 - 2 puff INHALATION RT-Q6H PRN [History] Fluticasone/Salmeterol [Advair 250-50 Diskus] 1 inhalation PO RT-BID 07/02/15 [ History] Pantoprazole Sodium [Protonix] 40 mg PO DAILY 01/09/16 [History] Fenofibrate [Lofibra] 160 mg PO DAILY #30 tablet 01/11/16 [Rx] Folic Acid-Vit B Complex-Vit C [Nephrocaps] 1 mg PO DAILY #30 capsule 01/11/16 [ Rx] Sheridan-3 Fatty Acids [Sheridan-3] 1,000 mg PO DAILY #30 capsule 01/11/16 [Rx] Thiamine [Vitamin B-1] 100 mg PO DAILY #30 tab 01/12/16 [Rx] Ticagrelor [Brilinta] 90 mg PO BID 12/09/16 [History] Atorvastatin Calcium [Lipitor] 80 mg PO HS 12/10/16 [History] Losartan Potassium [Cozaar] 25 mg PO DAILY 12/10/16 [History] Metoprolol Tartrate [Lopressor] 25 mg PO BID #60 tab 12/11/16 [Rx] Aspirin EC [Ecotrin Low Dose] 81 mg PO DAILY 01/24/17 [History] Potassium Chloride ER [K-Dur 10] 10 meq PO DAILY 01/24/17 [History] Sertraline [Zoloft] 100 mg PO DAILY #30 01/30/17 [Rx]
[2017-01-30 11:16] VITALS: BP 115/81; PULSE 80; RESP 16
[2017-01-30] MEDS: THIAMINE 100 MG TAB PO SCH (12:26)
[2017-01-30] MEDS: FOLIC ACID-VIT B COMPLEX-VIT C 1 CAP PO SCH (12:26)
== END 2017-01-30 15:40 | disposition home or self-care (01) | DRG 885 ==
LOC: 3MHU 18:16
PROVIDERS: ADMIT Psychiatry & Neurology Psychiatry; ATTEND Psychiatry & Neurology Psychiatry
DX: F33.9 Major depressive disorder, recurrent, unspecified (principal); I95.2 Hypotension due to drugs; F14.10 Cocaine abuse, uncomplicated; E78.5 Hyperlipidemia, unspecified; F12.90 Cannabis use, unspecified, uncomplicated; I25.10 Atherosclerotic heart disease of native coronary artery without angina pectoris; I25.2 Old myocardial infarction; J45.909 Unspecified asthma, uncomplicated; K21.9 Gastro-esophageal reflux disease without esophagitis; Z79.899 Other long term (current) drug therapy; Z95.5 Presence of coronary angioplasty implant and graft; F10.20 Alcohol dependence, uncomplicated
CPT/HCPCS: 80048; 93005; 94640